=== PATIENT | female | born 1975 | race Two or more races ===

== ENCOUNTER 2024-12-12 03:47 | Emergency (ER) | payer MEDICAID, SELFPAY ==
[2024-12-12 03:48] VITALS: BMI 29.0
[2024-12-12 03:55] VITALS: BP 148/89; PULSE 86; RESP 18; TEMP 36.7; O2SAT 100
--- NOTE | 2024-12-12 04:02 | PD.EDEYE ---
ED Eye Problem RME/HPI General Chief complaint: Eye Problems Stated complaint: LEFT EYE PAIN Time Seen by Provider: 12/12/24 04:00 Arrival date/time: 12/12/24 03:47 49 year old female present to emergency room with c/o of left eye injury today. pt report getting a tree branch accidentally hit eye. uptodate with tetanus LOCATION: eye SEVERITY: Symptoms are described as being severe with limitations on activities of daily living CONTEXT: tree branch accidentally hit eye DURATION/TIMING: The symptoms started approximately 1 day ASSOCIATED SYMPTOMS: eye pain redness, tearing, blurry vision MODIFYING FACTORS: The patient is unable to identify any alleviating or aggravating symptoms. PERTINENT ROS: no fevers, no cough, no chest pain/shortness of breath no nausea,vomiting, diarrhea, no dizziness/headache no rash no loc/syncope episode REVIEW OF SYSTEMS: See History of Present Illness - with the exception of those mentioned in the history of present illness, all other systems reviewed and reported as negative GENERAL: In general the patient is awake, interactive, in an emergency department gurney. HEAD/EYES/EARS/NOSE/THROAT: Left eye inject conjuctiva, + tearing no fb noted.eyelid wnl lnormo-cephalic, atraumatic, mucus membranes are moist, trachea is midline. CARDIOVASCULAR: regular rate and regular rhythm, no murmurs, heart sounds are not distant, strong pulses in all four extremities that are equal and symmetric bilateral upper and lower extremities, normal capillary refill. NEUROLOGICAL: cranio-facial features are symmetric, moves all four extremities equally without obvious limitations or weakness. EXTREMITY: no tenderness to palpation over the long bones or large joints of the bilateral upper and lower extremities, no joint swelling, no joint erythema, no signs of trauma, no unilateral leg swelling and no peripheral edema. SKIN: warm, dry, well-perfused, no jaundice, no rash, no telangiectasias or petechia. PSYCH: calm, cooperative, no evidence of psychosis or agitation Related Data Previous Rx's ?Medication ?Instructions ?Recorded acetaminophen 650 mg 650 mg PO Q8H PRN fever or pain 01/20/22 tablet,extended release (8 Hour #30 tabs Pain Reliever) erythromycin 5 mg/gram (0.5 %) eye 0.5 inch ophthalmic (eye) QID #3.5 12/12/24 ointment grams Allergies Allergy/AdvReac Type Severity Reaction Status Date / Time No Known Allergies Allergy Verified 01/20/22 11:20 Course Course Course Narrative: The Pt presents with _ likely due to a corneal abrasion seen on fluorescein staining of eye. The Pt is otherwise well-appearing without evidence of retained foreign body, corneal ulcer_, globe rupture, or superimposed infection. Prescribed antibiotics and instructed the Pt to follow up closely with ophthalmology/PCP and avoid wearing contacts_. Quality Measures none Orders Category Date Time Status Erythromycin Op Oint 0.5% Med 12/12/24 04:00 Discontinued 1 gm LEFT EYE X1 ONE Vital Signs Vital signs: Vital Signs Temperature 98.1 F 12/12/24 03:55 Pulse Rate 86 12/12/24 03:55 Respiratory Rate 18 12/12/24 03:55 Blood Pressure 148/89 H 12/12/24 03:55 Pulse Oximetry (%) 100 12/12/24 03:55 Oxygen Delivery Method Room Air 12/12/24 03:55 Procedures -ED Syed Lamp Exam Left eye: Flourescein uptake:: Yes Syed Lamp Findings: Corneal abrasion Eye Patient data External records reviewed:: None Clinical information provided by:: patient Social determinants that could affect healthcare access:: none Patient has the following chronic illnesses:: none How is presenting disease/condition affected by chronic disease/condition?: no chronic disease Evaluation data The following diagnostics were reviewed and interpreted by me:: other (specify) Lab and/or radiology exams considered but not ordered:: n/a Interpretation Summary: n/a Medications / Prescriptions Medications or Prescriptions considered but not ordered:: n/a Medication administrations:: Medication Administration History Discontinued Medications Erythromycin (Erythromycin Op Oint 0.5% 1 Gm Packet) 1 gm LEFT EYE X1 ONE Stop: 12/12/24 04:01 n/a Consultations Consultation(s) initiated? (list below): No Diagnosis Eye Problem Differential Diagnosis: corneal abrasion, conjunctivitis and acute iritis Most likely diagnosis given after review of the tests above:: corneal abrasion Admission Indicated Admission indicated?: not indicated Admission Request Was there a request for admission?: No Disposition Plan Disposition Plan: Discharge Discharge Attestation Discharge Attestation: The patient and all family members were given an opportunity to ask questions and understood the discharge instructions. Discharge instructions specifically effects, indications for sooner follow up or return to the emergency department, and the expected course of current diagnosis. Patient condition: Stable Discharge Plan Plan Patient Disposition: HOME (Self Care) Health Concerns: Follow with PMD as directed Take tylenol or motrin as need Return to ED if sx worsen Prescriptions/Referrals Prescriptions/Med Rec: New erythromycin 5 mg/gram (0.5 %) ointment 0.5 inch ophthalmic (eye) QID Qty: 3.5 0RF No Action acetaminophen [8 Hour Pain Reliever] 650 mg tablet extended release 650 mg PO Q8H PRN (Reason: fever or pain) Qty: 30 0RF Problem List Clinical Impression: Corneal abrasion Patient/Caregiver Discharge Instructions Education Materials: ED Corneal Abrasion Print Language: Indonesian Stand Alone Forms: [facility] Award Info., Patient Portal Info Letter
[2024-12-12] MEDS: Erythromycin Op Oint 0.5% 1 GM PACKET LEFT EYE (04:27)
[2024-12-12 04:31] VITALS: BP 123/86; PULSE 82; RESP 18; TEMP 36.8; O2SAT 98
== END 2024-12-12 04:31 | disposition home or self-care (01) ==
LOC: SERX 04:23
PROVIDERS: Emergency Provider Emergency Medicine; PCP Physician Assistant
DX: S05.02XA Injury of conjunctiva and corneal abrasion without foreign body, left eye, initial encounter (principal); W22.8XXA Striking against or struck by other objects, initial encounter
CPT/HCPCS: 99282; A9270

== ENCOUNTER → 2025-02-02 | Outpatient (CLI) | payer MEDICAID, SELFPAY ==
--- NOTE | 2025-02-02 13:00 | XR_ITS ---
Examination: Breast ultrasound complete, bilateral Date and time of exam: February 02, 2025 at 1319 hrs. Indications: 2:00 nodule right breast 2.2 cm, 2:00 nodule left breast 6 mm, 9 mm, 11:00 nodule 5 mm Technique: Real-time grayscale ultrasonographic imaging bilateral breasts, including all 4 quadrants as well as nipple retroareolar and axillary regions. Findings: Sonographic images right breast 2:00 oval mass with breast biopsy marker 2.7 x 2.2 cm Metacarpophalangeal 10 x 7 mm Sonographic images left breast 2:00 nodule 10 x 8 mm 2:00 nodule 6 x 6 mm 10:00 nodule 8 x 6 mm 11:00 nodule 6 x 6 mm Impression: BI-RADS Category 3: Probably benign findings Continued 6 month bilateral breast views follow-up is needed to document stability of nodules described
== END | disposition home or self-care (01) ==
PROVIDERS: PCP Physician Assistant; Referring Provider Physician Assistant; Visit Provider Physician Assistant
DX: N63.22 Unspecified lump in the left breast, upper inner quadrant (principal); N63.12 Unspecified lump in the right breast, upper inner quadrant; N63.21 Unspecified lump in the left breast, upper outer quadrant
CPT/HCPCS: 76641

== ENCOUNTER → 2025-08-03 | Outpatient (CLI) | payer MEDICAID, SELFPAY ==
--- NOTE | 2025-08-03 11:30 | XR_ITS ---
Examination: Pelvic ultrasound, transabdominal, complete Technique: Transabdominal ultrasound of the pelvis performed using grayscale imaging Date and time of exam: August 03, 2025 1131 hours INDICATIONS: Uterine mass is noted on outside ultrasound examination one month ago. FINDINGS: Uterus 13.0 cm, anterior uterine body mass 3.5 x 2.9 x 3.5 cm Endometrial stripe 15 mm Right ovary 3.2 cm arterial flow Left ovary 3.5 cm arterial flow 14 mm x 20 mm follicular cyst IMPRESSION: Anterior uterine body mass 3.5 x 2.9 x 3.5 cm most consistent with fibroid degeneration, recommend 6 month follow-up transvaginal pelvic sonography
== END | disposition home or self-care (01) ==
PROVIDERS: PCP Obstetrics & Gynecology; Referring Provider Obstetrics & Gynecology; Visit Provider Obstetrics & Gynecology
DX: R19.00 Intra-abdominal and pelvic swelling, mass and lump, unspecified site (principal)
CPT/HCPCS: 76856

== ENCOUNTER → 2025-10-13 | Outpatient (CLI) | payer MEDICAID, SELFPAY ==
--- NOTE | 2025-10-13 10:45 | XR_ITS ---
Examination: Breast ultrasound complete, bilateral Date and time of exam: October 13, 2025, 1204 hours INDICATIONS: Bilateral breast sonography February 02, 2025 right breast 2:00 nodule 27 mm left breast 2:00 nodule 10 mm 2:00 nodule 6 mm 10:00 nodule 8 mm 11:00 nodule 6 mm Technique: Real-time grayscale ultrasonographic imaging bilateral breasts, including all 4 quadrants as well as nipple retroareolar and axillary regions. Findings: Sonographic images right breast 2:00 nodule 24 x 26 mm 6:00 cyst 7 x 5 mm 9:00 nodule 9 x 8 mm 10:00 nodule lobular margins 7 x 9 mm 11:00 nodule 11 x 11 mm Sonographic images left breast 2:00 nodule lobular margins 6 x 6 mm 2:00 nodule lobular margins 11 x 11 mm 3:00 nodule lobular margins 8 x 7 mm 11:00 nodule circumscribed 8 x 7 mm Smaller nodules IMPRESSION: BI-RADS Category 3: Probably benign findings Recommend continued 6-month follow-up bilateral breast sonography to document stability of multiple solid nodules described above
--- NOTE | 2025-10-13 11:45 | XR_ITS ---
Examination: Diagnostic digital mammography, bilateral Computer aided detection 3-D breast Tomosynthesis, bilateral Date and time of exam: October 13, 2025, 1142 hours, compared to mammogram dated November 242019 Technique: Nonmagnified MLO, CC views of the breasts to been obtained, reconstructed from 3-D Tomosynthesis images. R2 computer aided detection program utilized for evaluation of suspicious masses and/or abnormal calcifications. 3-D Tomosynthesis images obtained. Findings: The breasts are heterogeneously dense, which may obscure small masses Stable nodule with breast biopsy marker inner lower right breast New circumscribed nodule upper outer right breast, 22 mm Impression: BI-RADS Category 0: Incomplete: Need additional imaging evaluation Recommend follow-up spot tomographic views of circumscribed nodule, 22 mm, upper outer right breast as well as bilateral breast sonography to complete the work-up.
== END | disposition home or self-care (01) ==
LOC: CDIM 11:37
PROVIDERS: Referring Provider Internal Medicine; Visit Provider Internal Medicine
DX: N63.11 Unspecified lump in the right breast, upper outer quadrant (principal); N63.25 Unspecified lump in the left breast, overlapping quadrants; N63.15 Unspecified lump in the right breast, overlapping quadrants; N63.22 Unspecified lump in the left breast, upper inner quadrant; N63.12 Unspecified lump in the right breast, upper inner quadrant; N63.21 Unspecified lump in the left breast, upper outer quadrant
CPT/HCPCS: 76641; 77062; 77066; G0279